=== PATIENT | male | born 1995 ===

== ENCOUNTER 2024-11-19 14:58 | Outpatient (AMB) | payer OTHER, SELFPAY ==
--- NOTE | 2024-11-19 15:21 | A.OFFVIS_ITS ---
Intake Visit Reasons: ENP: Other Fatigue Allergies No Known Allergies Allergy (Verified 11/13/24 08:25) Medication List - Last Reconciled 11/19/24 by Mi Arzate MD buspirone 5 mg PO ONCE celecoxib 200 mg PO DAILY clonidine HCl 0.1 mg PO BID PRN fluticasone propionate 50 mcg/actuation 1 spray intranasal DAILY gabapentin 300 mg PO DAILY hydroxyzine HCl 25 - 50 mg PO BID PRN quetiapine 50 mg PO BID quetiapine 25 mg PO DAILY PRN HPI Comments Details: The patient is a 29-year-old male presenting with migraine management. He describes the head pain as stabbing, localized to the left side of his face, e ye, and head top. This has been a chronic issue over the past two years, with severity peaking at 5 out of 10. Each episode lasts about an hour, occurring daily without attendant nasal or ocular excretions but accompanied by dryness of the eyes. There were one or two incidents of abrupt vision loss which have not reoccurred. His mother has a history of frequent headaches. For his anxiety, he is currently taking medications that aid in sleep, but he is not receiving treatment specifically for the migraines. The choice of pharmacy shifted to [facility] following closure of his original pharmacy, situated at [facility]. His treatment history shows no specific interventions for his headache concerns prior to this consultation, although migraines have been a constant fixture. Consultation was sought subsequent to a referral, likely due to constrained specialist access locally. [facility] Medical History (Updated 11/19/24 @ 15:28 by Mi Arzate MD) Lumbar radiculitis Major depression Other fatigue Anxiety Family History (Updated 11/13/24 @ 08:26 by Amina Almendarez CMA) Brother Asthma Maternal Grandmother Diabetes mellitus Social History (Updated 11/13/24 @ 08:26 by Amina Almendarez CMA) Alcohol intake: current Patient Tobacco Use Status: Current everyday Tobacco user Tobacco use type: Cigarette Use of substances other than those prescribed or required for medical reasons: Yes Substance Use Type: Marijuana Review of Systems Const Details: - Neurological: Reports intermittent stabbing headache on the left side of the face and head. - Musculoskeletal: Denies musculoskeletal complaints. - Ophthalmologic: Reports dry eyes; denies watering or discharge. - Respiratory: Denies respiratory conditions such as asthma. - Genitourinary: Reports frequent urination. - Dermatologic: Reports itching. - Psychiatric: Reports sleep problems; taking medication for anxiety. - Gastrointestinal: Reports nausea. Physical Exam Neuro Other: Mental Status: Alert and oriented to person, place, and time. Normal attention. Normal spontaneous speech, fluency, and comprehension. No obvious issues with mood and memory. Affect is appropriate. Cranial Nerves: CN II: Visual boss full to confrontation, visual acuity intact. CN III, IV, : Pupils equal, round, reactive to light and accommodation. Extraocular movements are normal. CN V: Facial sensation is normal. CN VII: Facial movements symmetrical. CN VIII: Hearing intact to bedside conversation is normal. CN IX, X: Palate elevates symmetrically. CN XI: Shoulder shrug and head turn symmetrical. CN XII: Tongue midline without atrophy or fasciculations. Motor: Bulk and tone normal in all extremities. No significant muscle weakness in arms and legs. No drift. Reflexes: Deep tendon reflexes 2+ and symmetric. Plantar response down-going bilaterally. Coordination: Uuzzgq-je-rrsv and mwsa-fo-uhfp testing normal. No dysmetria. Gait and Station: No obvious gait abnormality. No ataxia or instability. Sensory: Intact to light touch, pinprick, and vibration. Romberg is negative. Extrapyramidal: Full facial expressions and blinking. No rigidity. Movements are appropriate with no tremor or abnormality. Speech: Normal; no dysarthria or tremor. Assessment & Plan Assessment & Plan (1) Migraine with aura, not intractable, without status migrainosus: Code(s): G43.109 - Migraine with aura, not intractable, without status migrainosus Category: Medical Plan 29 years old with migraine with aura. Propranolol was continued and laboratories were ordered. Orders: Orders Erythrocyte Sedimentation Rate 11/19/24 G43.109 - Migraine with aura, not intractable, without status migrainosus Lyme IgG/IgM w/reflex to WB 11/19/24 G43.109 - Migraine with aura, not intractable, without status migrainosus Medications: New propranolol 10 mg (1/2 x 20 mg) PO BID 60 tabs 1RF Coding Level of Care Code New Pt Level 4 (90192) Diagnoses Migraine with aura, not intractable, without status migrainosus G43.109
--- OUTSIDE RECORDS SUMMARY | 2024-11-19 18:35 | XMS_ITS | Encounter Summary ---
Author Organization [facility] Address [address] [place] [address] Care Team Providers Care Strategic Communications Manager Name Role Phone Anmol Elena MD Primary Care Provider [phone] Encounter Details Date Type Department Care Team (Late st Contact Info) Description 11/19/2024 Telephone Internal Medicine - [place] [facility] [address] [phone] Anmol Elena MD [address] [id number] Social History Tobacco Use Types Packs/Day Years Used Date Smoking Tobacco: Former Cigarettes 0 4.5 0 03/06/2011 - 09/14/2015 Smokeless Tobacco: Never Alcohol Use Standard Drinks/Week Comments Yes 0 (1 standard drink = 0.6 oz pur e alcohol) Sex and Gender Information Value Date Recorded Sex Assigned at Not on file Legal Sex Male 10:26 PM EST Gender Identity Not on file Sexual Orientation Not on file documented as of this encounter Plan of Treatment Not on file documented as of this encounter Visit Diagnoses Not on filedocumented in this encounter Care Teams Strategic Communications Manager Relationship Specialty Start Date End Date Anmol Elena MD [address] [address] PCP - General 10/14/22 documented as of this encounter
--- OUTSIDE RECORDS SUMMARY | 2024-11-19 18:35 | XMS_ITS | Clinical Summary ---
Author Organization 175 [facility] Address [address] [place] [address] Phone Care Team Providers Care Tractor Trailer Mechanic Name Role Phone Anmol Elena MD Primary Care Provider [phone] Allergies No known active allergies Medications busPIRone (BUSPAR) 5 mg tablet Take 1 tablet (5 mg total) by mouth. 1 Active celecoxib (CeleBREX) 200 mg capsule Take 1 capsule (200 mg total) by mouth. 3 Active cloNIDine (CATAPRES) 0.1 mg tablet Take 1 tablet (0.1 mg total) by mouth 2 (two) times a day if needed. 4 Active fluticasone propionate (Flonase Allergy Relief) 50 mcg/actuation nasal spray Administer into affected nostril(s). 0 Active gabapentin (NEURONTIN) 300 mg capsule Take 1 capsule (300 mg total) by mouth. 1 Active hydrOXYzine HCL (ATARAX) 25 mg tablet TAKE 1-2 TABLETS BY MOUTH TWICE A DAY NEEDED 5 Active QUEtiapine (SEROquel) 25 mg tablet Take 1 tablet (25 mg total) by mouth 1 (one) time each day if needed. 4 Active QUEtiapine (SEROquel) 50 mg tablet Take 1 tablet (50 mg total) by mouth 2 (two) times a day. Active Active Problems Problem Noted Date Diagnosed Date Marijuana use 08/19/2024 Cigarette smoker 08/19/2024 Anxiety 08/19/2024 Chronic abdominal pain 12/17/2015 Nasal polyposis 10/28/2015 Low vision, both eyes 12/31/2008 Encounters Date Type Department Care Team Description 11/19/2024 Telephone Internal Medicine - [place] 175 [facility] [address] [place] [phone] Anmol Elena MD 10/23/2024 4:00 PM EDT Office Visit Internal Medicine [facility] 175 [facility] [address] [place] [address] Anmol Elena MD Other fatigue (Primary Dx); Current mild episode of major depressive disorder, unspecified whether recurrent (CMS/[facility] V24); Lumbar radiculitis 08/19/2024 3:30 PM EDT Office Visit Internal Medicine [facility] 175 [facility] [address] [place] [phone] Anmol Elena MD Palpitations (Primary Dx); Other fatigue; Current mild episode of major depressive disorder, unspecified whether recurrent (CMS/[facility] V24) from Last 3 Months Immunizations Name Administration Dates Next Due DTaP (Infanrix) 6wks to less than 7yo ,01/04/1995,01/04/1994,10/04,1993 [id number] (Pentacel) 2mo to less than 5yo 01/04/1995,01/04/1994,1993,08/04 HPV, Quadrivalent 05/26/2014,09/04/2012 Hepatitis B Pediatric (Enger ix B; Recombivax HB) to less than 20 yo 11/05/1994,1993,1993 Influenza trivalent, with pr eservative (Fluzone; Afluria) 6mo and older 01/18/2010 MMR, measles mumps and rubel la Live (Priorix; M-M-R II) 12mo and older 11/21/1997,01/04/1995 Meningococcal MCV4P 12/31/2008 Meningococcal, Unspecified 09/04/2012 OPV 05/17/2002, 2,01/19/2000,03/26 Tdap Tetanus diptheria acell ular pertussis (Boostrix; Adacel) 7yo and older 09/04/2012,01/11/2006 Varicella live (Varivax) 12m o and older 06/19/1999 Surgical History Surgery Date Site/Laterality Comments OTHER SURGICAL HISTORY PROCEDURE: DENIES PREVIOUS SURGERY Medical History Medical History Date Comments Patient denies medical problems DX:Patient denies medical problems Family History Medical History Relation Name Comments Asthma Brother 1 Diabetes Maternal Grandmother Relation Name Status Comments Brother 1 Brother 2 Maternal Grandmother Social History Tobacco Use Types Packs/Day Years [...] on file Sexual Orientation Not on file Obstetrics History Last Filed Vital Signs Vital Sign Reading Time Taken Comments Blood Pressure 100/60 10/23/2024 3:52 PM EDT Pulse 65 10/23/2024 3:52 PM EDT Temperature 36.7 C (98.1 F) 10/23/2024 3:52 PM EDT Respiratory Rate - - Oxygen Saturation 98% 10/23/2024 3:52 PM EDT Inhaled Oxygen Concentration - - Weight 49.1 kg (108 lb 3.2 oz) 10/23/2024 3:52 P M EDT Height 162.6 cm (5' 4 ) 10/23/2024 3:52 PM EDT Body Mass Index 18.57 10/23/2024 3:52 PM EDT Plan of Treatment Health Maintenance Due Date Last Done Comments HPV Vaccines (3 - Male 3-dose series) 08/18/2014 05/26/2014, 09/04/2012 DTaP,Tdap,and Td Vaccines (8 - Td or Tdap) 09/04/2022 09/04/2012, 01/11/2006, 10/21/1997, Additional history exists HIV Screening 04/05/2023 Hepatitis C Screening 04/05/2023 Social Influencers of Health Screening 04/05/2023 Depression Screening 03/06/2024 COVID-19 Vaccine ( season) 2024 Influenza Vaccine (#1) 2024 01/18/2010 Hepatitis B Vaccines Completed 11/05/1994, 1993, 1993 HIB Vaccines Completed 01/04/1995, 03/1993, 1993, Additional history exists MMR Vaccines Completed 11/21/1997, 01/04/1995 Varicella Vaccines Aged Out 06/19/1999 No longer eligible based on patient's age to complete this topic IPV Vaccines Completed 05/17/2002, 09/2001, 01/19/2000, Additional history exists Meningococcal ACWY Vaccine Aged Out 09/04/2012, No longer eligible based on patient's age to complete this topic Hepatitis A Vaccines Aged Out No long er eligible based on patient's age to complete this topic Meningococcal B Vaccine Aged Out No l onger eligible based on patient's age to complete this topic Pneumococcal Vaccine: Pediatrics (0 to 5 Years) and At-Risk Patients (6 to 49 Years) Aged Out No longer eligible based on patient's age to complete this topic RSV Immunization Patients Under 20 months Aged Out No longer eligible based on patient's age to complete this topic [place] [address] [place] [address] [place] [address] Care Teams Tractor Trailer Mechanic Relationship Specialty Start Date End Date Anmol Elena MD [address] [place] [address] PCP - General 10/14/22
--- OUTSIDE RECORDS SUMMARY | 2024-11-19 18:35 | XMS_ITS | Clinical Summary ---
Author Organization [facility] Address [address] [place] [phone] Phone Care Team Providers Care Files Supervisor Name Role Phone Pcp, Unknown Primary Care Provider Unavailabl e Allergies No known active allergies Medications No known medications Social History Tobacco Use Types Packs/Day Years Used Date Smoking Tobacco: Never Assessed Education Answer Date Recorded Are you interested in more education? Not on nick e 08/19/2023 Are you concerned about learning? Not on file 08/19/2023 No 08/19/2023 No 08/19/2023 Digital Access Answer Date Recorded No 08/19/2023 No 08/19/2023 Reliable internet access at home? Not on file 08/19/2023 Device with a working camera? Not on file Intimate Partner Violence Answer Date R ecorded Are you denied basic needs s uch as food, clothing, or medical care? No 08/19/2023 In the past 12 months have y ou been in a relationship with a person who hurts, threatens, or tries to control you? No 08/19/2023 Are you denied basic needs s uch as food, clothing, or medical care? No 08/19/2023 In the past 12 months have y ou been in a relationship with a person who hurts, threatens, or tries to control you? No 08/19/2023 Comments Unknown Sex and Gender Information Value Date Recorded Sex Assigned at Choose not to disclose 1:15 AM EDT Legal Sex Male 6:14 PM EST Gender Identity Choose not to disclose 1:15 AM EDT Sexual Orientation Choose not to disclose 06/15/ 2024 1:15 AM EDT Last Filed Vital Signs Vital Sign Reading Time Taken Comments Blood Pressure 104/59 08/19/2023 12:41 AM EDT Pulse 76 08/19/2023 12:41 AM EDT Temperature 36.7 C (98.1 F) 08/19/2023 12:41 AM EDT Respiratory Rate 16 08/19/2023 12:41 AM EDT Oxygen Saturation 100% 08/19/2023 12:41 AM EDT Inhaled Oxygen Concentration - - Weight - - Height - - Body Mass Index - - Plan of Treatment Health Maintenance Due Date Last Done Comments DEPRESSION SCREENING 2005 SMOKING Hx and SMOKELESS TOB ACCO SCREENING 2006 HEPATITIS C SCREENING 06/11/2011 HIV ONE-TIME SCREENING (18-6 5 YEARS) 06/11/2011 Adult Td,Tdap Booster 01/12/2016 01/11/2006 INFLUENZA VACCINE (#1) 2024 COVID-19 VACCINE ( - 2023-2 5 season) 2024 HEPATITIS A VACCINES Aged Out No long er eligible based on patient's age to complete this topic HIB VACCINES Aged Out No longer eligi ble based on patient's age to complete this topic MENINGOCOCCAL VACCINES (ACWY) Aged Out No longer eligible based on patient's age to complete this topic MENINGOCOCCAL VACCINES (B) Aged Out N o longer eligible based on patient's age to complete this topic PNEUMOCOCCAL VACCINES (0-49 years) Aged Out No longer eligible based on patient's age to complete this topic Medical Devices Not on file [place] [address] [facility] [employer] [facility] [address] [place] [address] [facility] [employer] Care Teams Files Supervisor Relationship Specialty Start Date End Date Pcp, Unknown PCP - General 08/19/23 Additional Source Comments The information contained in this document represents components of the legal health record. It is not the complete legal health record.[facility]
== END 2024-11-19 16:45 | disposition home or self-care (01) ==
LOC: HO.HSM 14:59
PROVIDERS: PCP Internal Medicine; Visit Provider Psychiatry & Neurology Neurology
DX: G43.109 Migraine with aura, not intractable, without status migrainosus (principal)
CPT/HCPCS: 99204

== ENCOUNTER → 2024-11-19 14:58 | Outpatient (BNVA) | payer OTHER, SELFPAY | PROVIDERS: PCP Internal Medicine; Visit Provider Psychiatry & Neurology Neurology | DX: G43.109 Migraine with aura, not intractable, without status migrainosus (principal) | CPT/HCPCS: 99202 ==